=== PATIENT | female | born 2000 | race Hispanic/Latino ===

== ENCOUNTER 2018-03-17 14:38 | Observation (INO) | payer MEDICAID ==
[2018-03-17 16:17] LABS: APPEARANCE,URINE Cloudy (CLEAR); BILIRUBIN,URINE Negative (NEGATIVE); COLOR,URINE Yellow (YELLOW); GLUCOSE, URINE (UA) Negative (NEGATIVE); KETONES,URINE Negative (NEGATIVE); LEUKOCYTE ESTERASE ,URINE Trace (NEGATIVE); NITRATE,URINE Negative (NEGATIVE); OCCULT BLOOD,URINE Negative (NEGATIVE); PH,URINE 8.5 (5.0-8.0); PROTEIN,URINE Negative (NEGATIVE); UROBILINOGEN,URINE 0.2 mg/dL (0.2-1.0)
[2018-03-17 16:20] LABS: BASOPHILS % (AUTO) 0.1 % (0.0-5.0); HEMATOCRIT 34.7 % (36-48); LYMPHOCYTES % (AUTO) 20.1 % (21.0-51.0); MEAN CORPUSCULAR HEMOGLOBIN 30.9 pg (27.0-33.0); MEAN CORPUSCULAR HGB CONC 34.1 g/dL (32.0-36.0); MEAN CORPUSCULAR VOLUME 90.6 fL (80-100); MONOCYTES % (AUTO) 8.5 % (3.0-13.0); NEUTROPHILS % (AUTO) 70.3 % (40.0-77.0); PLATELET COUNT (AUTO) 159 K/uL (130-400); RED BLOOD CELL COUNT(AUTO) 3.83 MIL/uL (4.00-5.50); WHITE BLOOD COUNT (AUTO) 7.2 K/uL (4.8-10.8)
[2018-03-17 16:23] LABS: CREATININE 0.5 mg/dL (0.5-1.5)
[2018-03-17 16:27] LABS: INR 0.92 (0.85-1.15); PARTIAL THROMBOPLASTIN TIME 30.1 SEC (26.3-35.5); PROTHROMBIN TIME 9.7 SEC (9.6-11.6)
[2018-03-17 16:29] LABS: BILIRUBIN,TOTAL 0.3 mg/dL (0.2-1.0); URIC ACID 4.3 mg/dL (2.6-7.2)
[2018-03-17 16:36] LABS: BACTERIA,URINE Few /HPF (None Seen); RBC,URINE None Seen /HPF (0-1); WBC,URINE 0-1 /HPF (0-1)
[2018-03-31] MEDS ORDERED: PREN-154 PO (15:27)
== END 2018-03-17 17:10 | disposition home or self-care (01) ==
LOC: LDH 14:38
PROVIDERS: ADMIT Obstetrics & Gynecology; ATTEND Obstetrics & Gynecology
DX: O26.893 Other specified pregnancy related conditions, third trimester (principal); R10.11 Right upper quadrant pain; Z3A.37 37 weeks gestation of pregnancy
CPT/HCPCS: 36415; 80053; 81001; 84550; 85025; 85384; 85610; 85730; G0378 ×2; 96360

== ENCOUNTER 2018-04-04 15:56 | Emergency (ER) | payer MEDICAID ==
[~2018-04-04 15:56] MED LIST: PREN-154 PO
[2018-04-04] MEDS ORDERED: GLYCERIN PEDI SUPP.RECT PR ONE (18:15)
[2018-04-04] MEDS ORDERED: MAGNESIUM CITRATE 296 ML SOLUTION ONE (18:24)
== END 2018-04-04 19:14 | disposition home or self-care (01) ==
LOC: EDH 15:56
DX: O90.89 Other complications of the puerperium, not elsewhere classified (principal); K59.00 Constipation, unspecified
CPT/HCPCS: 74018

== ENCOUNTER 2021-04-01 13:36 | Emergency (ER) | payer MEDICAID, OTHER ==
[~2021-04-01] VITALS: Ht 165.1 cm; Wt 93.0 kg
[2021-04-01 14:13] LABS: BASOPHILS % (AUTO) 0.2 % (0.0-5.0); EOSINOPHILS % (AUTO) 0.2 % (0.0-8.0); HEMATOCRIT 39.5 % (36-48); LYMPHOCYTES % (AUTO) 5.1 % (21.0-51.0); MEAN CORPUSCULAR HEMOGLOBIN 31.9 pg (27.0-33.0); MEAN CORPUSCULAR HGB CONC 35.2 g/dL (32.0-36.0); MEAN CORPUSCULAR VOLUME 90.6 fL (79-99); MONOCYTES % (AUTO) 4.1 % (3.0-13.0); NEUTROPHILS % (AUTO) 89.9 % (40.0-77.0); PLATELET COUNT (AUTO) 149 K/uL (130-400); RED BLOOD CELL COUNT(AUTO) 4.36 MIL/uL (4.00-5.50); RED CELL DISTRIBUTION WIDTH 12.4 % (11.0-15.5)
[2021-04-01 14:18] LABS: APPEARANCE,URINE Clear (CLEAR); BILIRUBIN,URINE Negative (NEGATIVE); COLOR,URINE Yellow (YELLOW); GLUCOSE, URINE (UA) Negative (NEGATIVE); KETONES,URINE 40 mg/dL (NEGATIVE); LEUKOCYTE ESTERASE ,URINE Moderate (NEGATIVE); NITRATE,URINE Negative (NEGATIVE); OCCULT BLOOD,URINE Negative (NEGATIVE); PROTEIN,URINE Negative (NEGATIVE)
[2021-04-01 14:21] LABS: HCG,QUAL RESULT NEGATIVE (NEGATIVE)
[2021-04-01 14:37] LABS: BACTERIA,URINE Few /HPF (None Seen); MUCUS,URINE Moderate LPF (None Seen); RBC,URINE 0-1 /HPF (0-1); SQUAMOUS EPITHELIAL CELL,UR Few /HPF (0-2)
[2021-04-01 14:59] LABS: CREATININE 0.5 mg/dL (0.5-1.5); POTASSIUM 3.7 mmol/L (3.5-5.1)
[2021-04-01 15:03] LABS: ALBUMIN 4.2 g/dL (3.5-5.0); BILIRUBIN,TOTAL 0.7 mg/dL (0.2-1.0); TOTAL PROTEIN, SERUM 7.7 g/dL (6.0-8.3)
[2021-04-01] MEDS ORDERED: MECL-226 PO (19:30)
[2021-04-01] MEDS ORDERED: CETI10TA86 PO (19:30)
[2021-04-01] MEDS ORDERED: FAMO-136 PO (19:30)
[2021-04-01] MEDS ORDERED: ONDA4TAB10 PO (19:30)
[2021-04-01 19:42] VITALS: BP 128/76
== END 2021-04-01 19:40 | disposition home or self-care (01) ==
LOC: EDH 13:36
DX: R10.13 Epigastric pain (principal); R19.7 Diarrhea, unspecified; R42 Dizziness and giddiness; Z79.899 Other long term (current) drug therapy
CPT/HCPCS: 36415; 80053; 81001; 81025; 85025; 87088

== ENCOUNTER 2022-10-17 17:06 | Emergency (ER) | payer BC ==
[~2022-10-17] VITALS: Ht 165.1 cm; Wt 89.8 kg
[~2022-10-17 17:06] MED LIST changes: +CETI10TA87 PO; +FAMO-136 PO; +MECL-226 PO; +ONDA4TAB10 PO
[2022-10-17 18:15] VITALS: BP 151/90
[2022-10-17] MEDS ORDERED: CEPH500B PO (18:19)
[2022-10-17] MEDS ORDERED: IBUP-2070 PO (18:19)
== END 2022-10-17 18:36 | disposition home or self-care (01) ==
LOC: EDH 17:06
DX: L60.0 Ingrowing nail (principal)

== ENCOUNTER 2023-04-12 08:58 | Emergency (ER) | payer OTHER, BC ==
[~2023-04-12] VITALS: Ht 165.1 cm; Wt 89.8 kg
[~2023-04-12 08:58] MED LIST changes: +CEPH500B PO; +IBUP-2070 PO
[2023-04-12] MEDS ORDERED: ONDANSETRON 4MG INJ IVP ONE (09:30)
[2023-04-12] MEDS ORDERED: MORPHINE 4 MG SYG IVP ONE (09:30)
[2023-04-12] MEDS ORDERED: FAMOTIDINE 20MG VIAL IV ONE (09:30)
[2023-04-12] MEDS ORDERED: CYCL10TA16 PO (12:22)
[2023-04-12] MEDS ORDERED: IBUP-2070 PO (12:22)
[2023-04-12 13:22] VITALS: BP 131/86; PULSE 87; RESP 18; O2SAT 99
== END 2023-04-12 13:23 | disposition home or self-care (01) ==
LOC: EDH 08:58
DX: S13.4XXA Sprain of ligaments of cervical spine, initial encounter (principal); I16.0 Hypertensive urgency; M25.571 Pain in right ankle and joints of right foot; M79.632 Pain in left forearm; V89.2XXA Person injured in unspecified motor-vehicle accident, traffic, initial encounter; Y93.89 Activity, other specified; Y92.89 Other specified places as the place of occurrence of the external cause; Y99.8 Other external cause status
CPT/HCPCS: 99285; 70450; 96374; 71045; 96375; 73600; 73090; 73552; 72170; 72125; J3490; J2405; J2270

== ENCOUNTER 2023-09-30 22:21 | Emergency (ER) | payer BC ==
[~2023-09-30] VITALS: Ht 157.5 cm; Wt 90.7 kg
[~2023-09-30 22:21] MED LIST changes: +CYCL10TA16 PO
[2023-09-30 22:24] VITALS: BP 110/80; PULSE 94; RESP 18
[2023-09-30 23:19] LABS: ADD UA MICROSCOPIC NO; APPEARANCE,URINE CLEAR (CLEAR); BILIRUBIN,URINE NEGATIVE (NEGATIVE); COLOR,URINE LIGHT-YELLOW (YELLOW); GLUCOSE, URINE (UA) NEGATIVE (NEGATIVE); KETONES,URINE NEGATIVE (NEGATIVE); LEUKOCYTE ESTERASE ,URINE NEGATIVE Leu/uL (NEGATIVE); NITRATE,URINE NEGATIVE (NEGATIVE); OCCULT BLOOD,URINE NEGATIVE (NEGATIVE); PH,URINE 5.5 (5.0-8.0); PROTEIN,URINE NEGATIVE (NEGATIVE); UROBILINOGEN,URINE 0.2 mg/dL (0.2-1.0)
[2023-09-30 23:21] LABS: SARS-CoV-2, RNA, NAAT NEGATIVE SARS CoV-2 (NEGATIVE)
[2023-09-30 23:25] LABS: INFLUENZA TYPE A Negative For Type A (NEGATIVE); INFLUENZA TYPE B Negative For Type B (NEGATIVE)
[2023-09-30] MEDS ORDERED: AMOX1TAB16 PO (23:44)
[2023-10-01] MEDS: ACETAMINOPHEN 500 MG TABLET PO ONE (00:08)
[2023-10-01] MEDS: CEFTRIAXONE 1G VIAL IM ONE (00:08)
== END 2023-10-01 00:17 | disposition home or self-care (01) ==
LOC: EDH 22:21
DX: O26.891 Other specified pregnancy related conditions, first trimester (principal); J03.90 Acute tonsillitis, unspecified; R50.9 Fever, unspecified; Z20.822 Contact with and (suspected) exposure to COVID-19; Z79.899 Other long term (current) drug therapy
CPT/HCPCS: 99284; 87635; 87880; 87804 ×2; 81003; 96372; J0696

== ENCOUNTER 2024-01-21 18:11 | Observation (INO) | payer BC ==
[~2024-01-21] VITALS: Ht 162.6 cm; Wt 104.3 kg
[~2024-01-21 18:11] MED LIST changes: +AMOX1TAB16 PO; +ONDA-243 PO; -ONDA4TAB10 PO
[2024-01-21 18:14] VITALS: BP 153/93; PULSE 100; RESP 16
[2024-01-21 18:47] LABS: APPEARANCE,URINE CLEAR (CLEAR); BILIRUBIN,URINE NEGATIVE (NEGATIVE); COLOR,URINE LIGHT-YELLOW (YELLOW); GLUCOSE, URINE (UA) NEGATIVE (NEGATIVE); KETONES,URINE 5 mg/dL (NEGATIVE); LEUKOCYTE ESTERASE ,URINE 250 Leu/uL (NEGATIVE); NITRATE,URINE NEGATIVE (NEGATIVE); OCCULT BLOOD,URINE NEGATIVE (NEGATIVE); PROTEIN,URINE 10 mg/dL (NEGATIVE)
[2024-01-21 19:18] LABS: ADD UA MICROSCOPIC YES
[2024-01-21 19:25] LABS: MUCUS,URINE RARE LPF (None Seen); SQUAMOUS EPITHELIAL CELL,UR FEW /HPF (0-2)
[2024-01-21] MEDS: LACTATED RINGERS 1000ML IV ONE (20:00)
== END 2024-01-21 20:45 | disposition home or self-care (01) ==
LOC: EDH 18:11 → LDH 18:29
PROVIDERS: ADMIT Obstetrics & Gynecology; ATTEND Obstetrics & Gynecology
DX: O26.892 Other specified pregnancy related conditions, second trimester (principal); R10.30 Lower abdominal pain, unspecified; Z3A.28 28 weeks gestation of pregnancy
CPT/HCPCS: 59025; 96360; 87086; 81001; G0378 ×2; G0379; J7120